=== PATIENT | female | born 2005 | race Caucasian/White ===

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

== ENCOUNTER 2025-04-04 04:42 | Emergency (ER) | payer MEDICAID, OTHER ==
[~2025-04-04] VITALS: Ht 152.4 cm; Wt 61.0 kg
[2025-04-04 04:44] VITALS: O2SAT 100
[2025-04-04 05:37] LABS: BASOPHILS % 0.2 % (0.0-2.0); EOSINOPHILS % 2.6 % (0.0-5.0); HEMATOCRIT. 37.9 % (36.0-48.0); HEMOGLOBIN. 12.1 g/dL (12.0-16.0); LYMPHOCYTES % 41.8 % (20.0-50.0); MEAN PLATELET VOLUME 9.9 fl (7.4-10.4); MONOCYTES % 7.5 % (2.0-8.0); NEUTROPHILS % 47.9 % (40.0-76.0); PLATELET 216 x1000/uL (130-400); RED BLOOD CELL COUNT 4.60 mill/uL (4.2-5.4); RED CELL DISTRIBUTION WIDTH 14.3 % (11.6-14.6)
[2025-04-04 05:55] LABS: CREATININE 0.7 mg/dL (0.6-1.0); UREA NITROGEN BLOOD 9 mg/dL (9-23)
[2025-04-04 05:57] LABS: ASPARTATE AMINOTRANSFERASE 20 IU/L (<34); BILIRUBIN DIRECT < 0.1 mg/dL (<=3.0); BILIRUBIN TOTAL 0.3 mg/dL (0.1-1.0); PROTEIN TOTAL 7.4 g/dL (6.0-8.3)
[2025-04-04] MEDS: ACETAMINOPHEN 325MG TABLET PO ONE (06:21)
[2025-04-04 07:31] LABS: HCG SCREEN NEGATIVE
[2025-04-04] MEDS ORDERED: AMOX1TAB16 MT (08:50)
[2025-04-04 08:51] VITALS: BP 108/58; PULSE 76; RESP 16; TEMP 37.1; O2SAT 100
== END 2025-04-04 09:04 | disposition home or self-care (01) ==
LOC: ER 04:42
DX: R10.9 Unspecified abdominal pain (principal)
CPT/HCPCS: 36415; 74176; 80048; 80076; 84703; 85025; 99285